=== PATIENT | female | born 1975 | race African-American/Black ===

== ENCOUNTER → 2016-11-10 | Outpatient (REF) | LOC: WSOH 08:01 → WSPT 09:00 | DX: Z02.1 Encounter for pre-employment examination (principal) ==

== ENCOUNTER → 2016-11-12 | Outpatient (REF) | LOC: WSOH 14:00 | DX: Z02.89 Encounter for other administrative examinations (principal) ==

== ENCOUNTER → 2016-11-19 | Outpatient (REF) | LOC: WSOH 08:09 | DX: Z02.89 Encounter for other administrative examinations (principal) ==

== ENCOUNTER 2017-07-22 10:32 | Inpatient (IN) | payer OTHER ==
[~2017-07-22] VITALS: Ht 157.5 cm; Wt 92.7 kg
[2017-09-01] VITALS (12 sets, daily range): BP systolic 92–138; BP diastolic 50–82; PULSE 60–92; TEMP 97.7–99
[2017-09-02 04:39] VITALS: BP 123/71; PULSE 89; TEMP 98.2
[2017-09-02 06:36] LABS: HEMATOCRIT 26.3 % (37.0-47.0); HEMOGLOBIN 8.5 g/dl (12.5-16.0)
[2017-09-02 07:57] VITALS: BP 114/59; PULSE 95; TEMP 98.7
[2017-09-02 11:43] VITALS: BP 117/63; PULSE 105; TEMP 99.4
[2017-09-02 16:03] VITALS: BP 99/72; PULSE 97; TEMP 98.3
[2017-09-02 20:14] VITALS: BP 111/55; PULSE 116; TEMP 98.2
[2017-09-03 03:03] VITALS: BP 123/61; PULSE 107; TEMP 100.3
[2017-09-03 07:30] LABS: HEMATOCRIT 24.3 % (37.0-47.0); HEMOGLOBIN 7.7 g/dl (12.5-16.0)
[2017-09-03 08:39] VITALS: BP 130/59; PULSE 107; TEMP 99.2
[2017-09-03 11:26] VITALS: BP 110/56; PULSE 114; TEMP 99.3
[2017-09-03 15:39] VITALS: BP 103/49; PULSE 85; TEMP 98.5
[2017-09-03 19:48] VITALS: BP 104/57; PULSE 94; TEMP 98.7
[2017-09-03 23:11] VITALS: BP 114/46; PULSE 91; TEMP 98.6
[2017-09-04 03:40] VITALS: BP 124/49; PULSE 87; TEMP 98.5
[2017-09-04] MEDS ORDERED: CELEBREX 200MG200 MG PO (06:24)
[2017-09-04] MEDS ORDERED: ASPI325T6 PO (06:24)
[2017-09-04] MEDS ORDERED: NORCO 325 MG-7.1 TAB PO (06:25)
[2017-09-04] MEDS ORDERED: ROXICODONE 55 MG/TAB PO (06:25)
[2017-09-04] MEDS ORDERED: SENOKOT S 50 MG1 TAB PO (06:26)
[2017-09-04 07:35] VITALS: BP 106/56; PULSE 90; TEMP 98.7
[2017-09-04 11:29] VITALS: BP 115/67; PULSE 92; TEMP 98.1
== END 2017-09-04 15:30 | disposition home or self-care (01) | DRG 470 ==
LOC: JCC 08-04 07:30
PROVIDERS: Orthopaedic Surgery
PROC: 0SRB0JZ Replacement of Left Hip Joint with Synthetic Substitute, Open Approach (ICD-10-PCS; principal; 2017-09-01 08:00)
DX: M87.852 Other osteonecrosis, left femur (principal)
CPT/HCPCS: A4314; A9284; C1713; C1776; J0690; J2250; J2270; J2704; J3010; J7120

== ENCOUNTER → 2017-07-28 | Outpatient (CLI) | payer OTHER | LOC: COL.LAB 07:05 | DX: Z01.812 Encounter for preprocedural laboratory examination (principal) ==